=== PATIENT | male | born 1950 | race Caucasian/White ===

== ENCOUNTER 2017-12-01 07:39 | Observation (INO) ==
[2017-12-01] MEDS ORDERED: 0.9 % Sodium Chloride 1,000 ML IVC ONE (08:13)
[2017-12-01] MEDS ORDERED: *HR* FentaNYL (PF) 100 MCG/2 ML VIAL IVP ONE (08:13)
[2017-12-01] MEDS ORDERED: Ondansetron 4 MG/2 ML VIAL IVP ONE (08:14)
--- NOTE | 2017-12-01 08:32 | Emergency Department Note ---
Disposition Clinical Impression: Urinary retention, Mass of urinary bladder Hematuria Qualifiers: Hematuria type: gross Qualified Code(s): R31.0 - Gross hematuria Disposition: Admitted As Inpatient Condition: Good Referrals: Sara Mcneil CNP [Primary Care Provider] - Forms: ED Satisfaction Letter, Work/School Release Time of Disposition: 10:34 Abdominal Pain HPI - General Chief Complaint: ED Abdominal Pain Stated Complaint: "kidney stones sent by " Time Seen by Provider: 12/01/17 07:43 Source: patient, family Mode of arrival: ambulatory Limitations: no limitations Nursing Notes Reviewed: Yes Vital Signs Reviewed: Yes - History of Present Illness HPI Narrative: 67-year-old male history of non-insulin dependent diabetes mellitus presents emergency department for kidney stone and hematuria. States over the past 2 weeks he has been having suprapubic and flank discomfort with dysuria and hematuria. Yesterday he was seen at outside facility [facility] and was diagnosed with multiple kidney stones. He has been passing stones throughout the night but last few hours has been having significant pain discomfort and decrease urine output. Denies any nausea or vomiting. Denies any fevers. He is scheduled to see urologist Dr. Marsh tomorrow but due to the pain presented here for evaluation. No history of kidney stones before. He reports this was diagnosed on x-ray. His urinalysis reportedly was unremarkable for infection. No prior abdominal surgeries. Denies any penile discharge or tenderness. Pain Scale: 9 - Related Data Home Medications Medication Instructions Recorded Confirmed Citalopram Hydrobromide [Celexa] 40 mg PO DAILY 08/22/15 12/01/17 Cyanocobalamin (B-12) [Vitamin B12] 1,000 mcg PO DAILY 08/22/15 12/01/17 Furosemide [Lasix] 40 mg PO BID 08/22/15 12/01/17 [place]-3/Dha/Epa/Fish Oil [[place] 3 1 cap PO DAILY 08/22/15 12/01/17 500 Softgel] clonazePAM [Klonopin] 1 mg PO BID 08/22/15 12/01/17 Aspirin Enteric Coated [Aspirin EC] 81 mg PO DAILY 12/01/17 12/01/17 Ciprofloxacin HCl [Cipro] 500 mg PO BID 12/01/17 12/01/17 GlipiZIDE [Glipizide ER] 10 mg PO DAILY 12/01/17 12/01/17 Metformin HCl [Metformin HCl] 1,000 mg PO BID 12/01/17 12/01/17 Multivitamin [One Daily Essential] 1 tab PO DAILY 12/01/17 12/01/17 Previous Rx's Medication Instructions Recorded Atorvastatin [Lipitor] 80 mg PO HS #30 tablet 12/15/16 Allergies Allergy/AdvReac Type Severity Reaction Status Date / Time No Known Allergies Allergy Verified 12/01/17 10:20 All systems ED: reviewed and negative except as stated. Review of Systems: As Per HPI Constitutional: Denies: fever, chills Cardiovascular: Denies: chest pain Respiratory: Denies: dyspnea Gastrointestinal: Reports: abdominal pain. Denies: nausea, vomiting, diarrhea, melena, hematochezia Genitourinary: Reports: dysuria, frequency, hematuria. Denies: discharge, testicular pain Musculoskeletal: Denies: back pain Integumentary: Denies: rash, abrasion Abdominal Pain PMH - Past Medical History Medical history: Reports: coronary artery disease, DVT, diabetes, hyperlipidemia , hypertension, myocardial infarction, pulmonary embolus Male Surgical History: Reports: angioplasty/stent, other Psychiatric history: Reports: no psych history - Social History Smoking status: Current some day smoker Alcohol use: Reports: none Drug use: Reports: none Physical Exam - General Limitations: no limitations General appearance: alert, in no apparent distress - Head Head exam: atraumatic, normocephalic, normal inspection - Eye Eye exam: Present: normal appearance, PERRL, EOMI. Absent: scleral icterus - ENT ENT exam: normal exam, normal oropharynx, mucous membranes moist - Neck Neck exam: Present: normal inspection, full ROM, trachea midline - Chest Chest inspection: Present: normal inspection, symmetric chest wall rise - Respiratory Respiratory exam: Present: normal lung sounds bilaterally. Absent: respiratory distress, wheezes - Cardiovascular Cardiovascular exam: Present: regular rate, normal rhythm, normal heart sounds - Abdominal Exam Abdominal exam: Present: soft, Non-Tender. Absent: tenderness, distention, guarding, rebound, rigidity - Extremities Exam Extremities exam: Present: normal inspection, full ROM. Absent: tenderness, pedal edema - Back Exam Back exam: Present: normal inspection, full ROM. Absent: tenderness, CVA tenderness (R), CVA tenderness (L) - Neurological Exam Neurological exam: Present: alert, oriented X3 - Psychiatric Psychiatric exam: Present: normal affect, normal mood - Skin Skin exam: Present: warm, dry, intact, normal color. Absent: rash, cyanosis, diaphoresis Course Course Narrative: Patient presents with gross hematuria and dysuria. Prior to my evaluation he has urinated 3 times with some gross hematuria and what appears to be blood clots passing. He is complaining of worsening pain mostly in the suprapubic region. Was recently diagnosed with kidney stones. Denies history kidney disease. History of gnu-[id number]-[id number] diabetes mellitus. On my examination patient appears in mild distress. He just appears uncomfortable. No respiratory distress. Lungs are clear auscultation bilaterally. Abdomen is soft with suprapubic tenderness. No CVA tenderness. At this time will check some basic labs to evaluate for any renal insufficiency. Will obtain a urinalysis, IV fluid hydration, pain control and a CT of the abdomen and pelvis to evaluate for the stone. Patient is in agreement with this pain. - Reevaluation(s) Reevaluation #1: Patient reports passing multiple kidney stones and voiding nearly 500 cc. Patient appears more comfortable. Review of his labs does not show leukocytosis. His creatinine function 0.79. Urinalysis shows gross hematuria and is not consistent with infection. Awaiting final report of CT scan of the abdomen and pelvis, on review it does appear to show multiple stones and a mass like lesion in the bladder. Time: 09:26 - Consultations Consultation #1: Spoke with on-call urologist Dr. Lorne Marsh, suspect this is likely bladder cancer. He believes hematuria is likely due to a blood clot in the bladder that is currently being lysed with the urine. The discomfort earlier today was likely blood clot that finally past. He will likely require bladder irrigation. Patient has a history of blood clot on Coumadin but does not take for several years now. He takes a baby aspirin on a daily basis. It appears he has a chronic anemia around 10.5, hemoglobin today 9.7. Otherwise he has been attempting to lose weight and reports 30 pounds weight loss over the past 6 months. Denies any fever or night sweats. At this time patient recommended to be admitted to the hospital service. Currently it appears more comfortable, pain worse with voiding. Impression is urinary retention now resolved and hematuria Time: 10:08 Vital Signs Temperature 97.7 F 12/01/17 07:40 Pulse Rate 78 12/01/17 07:40 Respiratory Rate 16 12/01/17 07:40 Blood Pressure 129/70 12/01/17 07:40 O2 Sat by Pulse Oximetry 95 12/01/17 07:40 Temperature 97.7 F 12/01/17 08:02 Pulse Rate 67 12/01/17 09:32 Respiratory Rate 18 12/01/17 08:02 Blood Pressure 94/63 12/01/17 09:32 O2 Sat by Pulse Oximetry 97 12/01/17 09:32 Oxygen Delivery Oxygen Delivery Room Air Abdominal Pain - MDM Narrative Medical decision making narrative: Patient was discussed with my attending physician who agrees with ED management and final disposition. They independently evaluated the patient. Please refer to their attestation to this encounter for additional information. This note was generated by [employer] voice recognition software and as a result grammatical or spelling errors may occur using this program. - Medical Records Medical records reviewed: Yes I reviewed the patient's medical records. - Lab Data Lab results reviewed: Yes I reviewed the patient's lab results. Result diagrams: 12/01/17 08:28 12/01/17 08:28 Lab Results 12/01/17 12/01/17 12/01/17 Range/Units 08:20 08:28 08:28 WBC 4.0 L (4.3-11.1) K/mcL RBC 3.46 L (4.19-5.50) M/mcL Hgb 9.7 L (12.9-16.9) g/dL Hct 30.2 L (37.5-50.1) % MCV 87.3 (83.0-100.0) fL MCH 28.0 (28.0-33.3) pg MCHC 32.1 (31.6-35.5) g/dL RDW 14.6 H (11.5-14.5) % Plt Count 184 (140-400) K/mcL MPV 9.4 (9.4-12.4) fL Immature Gran % 0.3 (0-4) % Seg Neutrophils % 56.4 % Lymphocytes % 30.2 % Monocytes % 10.6 % Eosinophils % 1.5 % Basophils % 1.0 % Neutrophils # 2.3 (1.6-8.9) K/mcL Lymphocytes # 1.2 (0.6-4.6) K/mcL Monocytes # 0.4 (0.0-1.3) K/mcL Eosinophils # 0.1 (0.0-0.6) K/mcL Basophils # 0.0 (0.0-0.2) K/mcL Sodium 139 (136-145) mEq/L Potassium 3.8 (3.5-5.1) mEq/L Chloride 106 (98-107) mEq/L Carbon Dioxide 23 (23-29) mEq/L BUN 11 (8-23) mg/dL Creatinine 0.79 (0.70-1.30) mg/dL Est GFR ( Amer) > 60 (> 60) Est GFR (Non-Af Amer) > 60 (> 60) BUN/Creatinine Ratio 14 (6-26) Glucose 185 H (70-105) mg/dL Calculated Osmolality 292 (280-300) Calcium 9.1 (8.6-10.3) mg/dL Ur Specimen Adequacy See below A Urine Color Red A (Yellow) Urine Clarity Cloudy A (Clear) Urine pH 6.5 (5.0-8.0) pH Units Ur Specific [place] 1.011 (1.010-1.025) Urine Protein >=1000 H (Neg-Trace) mg/dL Urine Glucose (UA) Normal (Normal) mg/dL Urine Ketones Negative (Negative) mg/dL Urine Blood Large H (Negative) Urine Nitrite Negative (Negative) Urine Bilirubin Negative (Negative) Urine Urobilinogen Normal (Normal) mg/dL Ur Leukocyte Esterase Negative (Negative) Ur Culture Indicated? NO (NO) - Radiology Data Radiology results reviewed: Yes I reviewed the patient's radiology results. Abdomen/Pelvis CT 12/01/17 08:20 IMPRESSION: 1. 1.4 x 1.1 cm soft tissue lesion along the left lateral bladder wall suspicious for neoplasm. Recommend further evaluation with urologic consult and cystoscopy. 2. Triangular-shaped 3.0 x 3.0 cm area of more hyperdense material layering within the dependent aspect of the bladder, favoring blood products given its density. An irregular mass is not otherwise excluded on this unenhanced study. 3. Nonobstructing left renal calculus. D/ / 12/01/2017 09:34:56 Betsy Neely MD / yolanda Interpreting Provider: Betsy Neely MD Attestation Statement - Attestation Attestation: I, Venkatesh Gill DO, examined this patient [id number] and my medical decision-making was reviewed with Rodolfo Goss DO , Resident Physician. I agree with the documented findings, disposition and treatment plan as described except to the extent set forth below. Please see my progress notes for details. 67-year-old male presents emergency room with complaint of bilateral flank pain and gross hematuria. Patient was seen in outside facility yesterday and had x- ray. He was found to have renal stones. He was given pain medication recommendation for follow-up with a primary care provider. Patient is a persistent pain and symptoms here today the have not gotten any better. Patient came back in the emergency room for evaluation. This morning had decreased urinary output and some small clots and then had gross hematuria here in the department. Currently is denying chest pain shortness of breath headache vision changes nausea vomiting or diarrhea. Denies any fevers or chills. Patient has a coronary disease history of embolic takes an aspirin at home. He is otherwise not on any other blood thinners. Because the presentation as well as the persistence of progression of the pain along with a hematuria patient was CT imaging of the abdomen along with CBC chemistry type and screen urinalysis completed here today. Disposition will be determined once full workup and treatment course are evaluated. On physical exam the patient is resting comfortable in the bed this time after pain medication fluids have not started. Lungs are clear heart is regular abdomen is soft nontender nondistended no guarding no rigidity no peritoneal symptoms. Blood in the urine was evaluated and shows some small clots along with gross hematuria. We will continue to monitor his symptoms are controlled completed and imaging is resulted. See detailed documentation of the physical exam, medical intervention, medical decision-making and disposition in the resident physician's note. [id number] Patient was discussed with the on-call urologist Dr. Marsh as well as the hospitalist Dr. beard. No other recommendations this time except for admission for further evaluation and definitive management. Patient will be symptomatically controlled. Admission process will be established. Patient otherwise clinical stable.
[2017-12-01 08:43] LABS: Bilirubin,Urine Negative (Negative); Blood,Urine Large (Negative); Glucose,Urine (UA) Normal (Normal); Ketones,Urine Negative (Negative); Leukocyte Esterase,Urine Negative (Negative); Nitrite,Urine Negative (Negative); PH,Urine 6.5 pH Units (5.0-8.0); Protein,Urine >=1000 mg/dL (Neg-Trace); Specific Gravity,Urine 1.011 (1.010-1.025); Urobilinogen,Urine Normal (Normal)
[2017-12-01 08:44] LABS: Eosinophils # 0.1 K/mcL (0.0-0.6); Eosinophils % 1.5 %; Hematocrit 30.2 % (37.5-50.1); Hemoglobin 9.7 g/dL (12.9-16.9); Immature Granulocytes % 0.3 % (0-4); Lymphocytes # 1.2 K/mcL (0.6-4.6); Lymphocytes % 30.2 %; Mean Corpuscular HGB Conc 32.1 g/dL (31.6-35.5); Mean Corpuscular Volume 87.3 fL (83.0-100.0); Mean Platelet Volume 9.4 fL (9.4-12.4); Monocytes # 0.4 K/mcL (0.0-1.3); Monocytes % 10.6 %; Neutrophils # 2.3 K/mcL (1.6-8.9); Platelet Count 184 K/mcL (140-400); Red Blood Count 3.46 M/mcL (4.19-5.50); Red Cell Distribution Width 14.6 % (11.5-14.5); Segmented Neutrophils % 56.4 %
[2017-12-01 08:50] LABS: Clarity,Urine Cloudy (Clear); Color,Urine Red (Yellow)
[2017-12-01 09:07] LABS: BUN/Creatinine Ratio 14 (6-26); Blood Urea Nitrogen 11 mg/dL (8-23); Calcium 9.1 mg/dL (8.6-10.3); Carbon Dioxide 23 mEq/L (23-29); Chloride 106 mEq/L (98-107); Glucose 185 mg/dL (70-105); Osmolality,Calculated 292 (280-300); Potassium 3.8 mEq/L (3.5-5.1); Sodium 139 mEq/L (136-145); eGFR For African Americans > 60 (> 60); eGFR For Non-African Americans > 60 (> 60)
[2017-12-01] MEDS ORDERED: Naloxone 0.4 MG/ML INJ IVP PRN (10:53)
[2017-12-01] MEDS ORDERED: Acetaminophen 325 MG TABLET PO PRN (10:53)
[2017-12-01] MEDS ORDERED: *HR* HYDROcodone/Acet 5/325 mg TABLET PO PRN (10:53)
[2017-12-01] MEDS ORDERED: *HR* OxyCODONE Immed Rel 5 MG TABLET PO PRN (10:53)
--- NOTE | 2017-12-01 10:53 | Internal Med History&Physical ---
Date of Encounter: 12/01/17 Time of Encounter: 13:01 Internal Medicine - H&P: HPI Chief complaint: Hematuria Admitted From: Home Plans for Post Hospital Care: Home History of present illness: Mr. Llamas is a 67 year old male who presented to the emergency room with complaints of passing [place] bloody urine. Blood clots of the past 2 weeks. The patient reports he was in his usual state of health until 2 weeks ago when he developed bloody urine, now associated with blood clots in the past 2 days. This morning, when he woke up, he had severe pain with abdominal distention, as well as difficulty passing urine. He decided to present to the ER. He denies fever or chills, he denies bleeding from any other orifices. He denies nausea, vomiting, diarrhea. He denies chest pain or shortness of breath. He has no leg edema. He has no neurologic symptoms. He has a history of coronary artery disease and takes aspirin at home however, he reports not taking aspirin for the past 5 days since symptoms begun. He reports he presented to an outside facility, where he had a CAT scan done that showed multiple kidney stones. However, CAT scan done here shows a bladder mass with blood clots in the bladder. Urology was consulted and recommended admitting to med seen due to acute on chronic anemia, history of diabetes and coronary artery disease. On evaluation, the patient is hemodynamically stable and is in mild painful distress. He will be placed on observation pending urology evaluation. He denies illicit drug use, he smokes no family history of cancer he is full code. Past Med Surg Social Fam HX - Past Medical History Medical history: coronary artery disease, DVT, diabetes, hyperlipidemia, hypertension, myocardial infarction, pulmonary embolus Additional medical history: right wrist cyst removed-cancerous Psychiatric history: no psych history - Past Surgical History Surgical History: angioplasty/stent Additional surgical history: coronary stent - Social History Smoking Status: Current some day smoker Smokeless Tobacco Status: No Alcohol use: none Drug use: none - Family History Mother Living Status: Hx Family Cardiac Disorders: Yes Father Living Status: Hx Family Cardiac Disorders: Yes Internal Medicine - H&P: Meds Citalopram Hydrobromide [Celexa] 40 mg PO DAILY 08/22/15 [History] Cyanocobalamin (B-12) [Vitamin B12] 1,000 mcg PO DAILY 08/22/15 [History] Furosemide [Lasix] 40 mg PO BID 08/22/15 [History] [place]-3/Dha/Epa/Fish Oil [[place] 3 500 Softgel] 1 cap PO DAILY 08/22/15 [History] clonazePAM [Klonopin] 1 mg PO BID 08/22/15 [History] Atorvastatin [Lipitor] 80 mg PO HS #30 tablet 12/15/16 [Rx] Aspirin Enteric Coated [Aspirin EC] 81 mg PO DAILY 12/01/17 [History] Ciprofloxacin HCl [Cipro] 500 mg PO BID 12/01/17 [History] GlipiZIDE [Glipizide ER] 10 mg PO DAILY 12/01/17 [History] Metformin HCl [Metformin HCl] 1,000 mg PO BID 12/01/17 [History] Multivitamin [One Daily Essential] 1 tab PO DAILY 12/01/17 [History] 3 Allergy/AdvReac Type Severity Reaction Status Date / Time No Known Allergies Allergy Verified 12/01/17 10:20 All Systems PM: A 10-system review of systems was performed and is negative for pertinent findings except as documented above in the HPI. - Constitutional Constitutional: no chills, no fever(s), no night sweats - EENT Eyes: no change in vision, no discharge, no pain, no photophobia Ears: no ear discharge, no ear pain, no tinnitus Nose, mouth and throat: no dysphagia, no nasal discharge, no neck pain, no sore throat - Cardiovascular Cardiovascular ROS IM: no chest pain, no diaphoresis, no dyspnea, no lightheadedness, no palpitations, no syncope - Respiratory Respiratory: no cough, no dyspnea, no wheezing, no excessive phlegm production - Gastrointestinal Gastrointestinal: no abdominal pain, no diarrhea, no hematemesis, no hematochezia, no melena, no nausea, no vomiting - Genitourinary Genitourinary ROS male: as per HPI - Musculoskeletal Musculoskeletal ROS IM: no numbness, no tingling - Integumentary Integumentary IM: no rash, no unusual bruising - Neurological Neurological ROS: no confusion, no convulsions, no focal weakness, no numbness, no tingling, no tremor(s) - Hematologic/Lymphatic Hematologic/Lymphatic: no easy bruising - Constitutional Vitals: Temp Pulse Resp BP Pulse Ox 97.7 F 67 18 94/63 97 12/01/17 08:02 12/01/17 09:32 12/01/17 08:02 12/01/17 09:32 12/01/17 09:32 General appearance: Present: A&O X 3, pleasant, no acute distress - Head Head exam: Present: atraumatic, normocephalic - Eye Eye exam: Present: PERRL, conjuntiva pink, sclera anicteric Pupils: Present: PERRL - Neck Neck exam general surgery: Present: supple, trachea midline. Absent: lymphadenopathy - Respiratory Respiratory exam: Present: CTAB. Absent: accessory muscle use, rales, rhonchi, wheezes - Cardiovascular Cardiovascular exam: Present: RRR, +S1, +S2. Absent: diastolic murmur, gallop, rubs, systolic murmur - GI/Abdominal GI/Abdominal exam: Present: normal bowel sounds, soft, no peritoneal signs. Absent: distended, tenderness - Extremities Exam Extremities exam: Present: warm, radial pulses palpable and symmetrical. Absent : calf tenderness, cyanotic, pedal edema - Neurological Exam Neurological exam: Present: CN II-XII intact, oriented X3, no focal deficits. Absent: pronater drift, facial droop, speech deficit - Skin Skin exam: Present: dry, intact Internal Med - H&P Results - Labs CBC & Chem 7: 12/01/17 08:28 12/01/17 08:28 Labs: Short CBC 12/01/17 Range/Units 08:28 WBC 4.0 L (4.3-11.1) K/mcL Hgb 9.7 L (12.9-16.9) g/dL Hct 30.2 L (37.5-50.1) % Plt Count 184 (140-400) K/mcL Neutrophils # 2.3 (1.6-8.9) K/mcL BMP 12/01/17 08:28 Sodium 139 Potassium 3.8 Chloride 106 Carbon Dioxide 23 BUN 11 Creatinine 0.79 Glucose 185 H Calcium 9.1 Urine 12/01/17 Range/Units 08:20 Urine Color Red A (Yellow) Urine Clarity Cloudy A (Clear) Urine pH 6.5 (5.0-8.0) pH Units Ur Specific [place] 1.011 (1.010-1.025) Urine Protein >=1000 H (Neg-Trace) mg/dL Urine Glucose (UA) Normal (Normal) mg/dL - Impressions ITS Impressions Abdomen/Pelvis CT 12/01/17 08:20 IMPRESSION: 1. 1.4 x 1.1 cm soft tissue lesion along the left lateral bladder wall suspicious for neoplasm. Recommend further evaluation with urologic consult and cystoscopy. 2. Triangular-shaped 3.0 x 3.0 cm area of more hyperdense material layering within the dependent aspect of the bladder, favoring blood products given its density. An irregular mass is not otherwise excluded on this unenhanced study. 3. Nonobstructing left renal calculus. D/ / 12/01/2017 09:34:56 Betsy Neely MD / yolanda Interpreting Provider: Betsy Neely MD - Assessment and plan (1) Hematuria Current Visit: Yes Status: Acute Assessment and plan: Patient with gross hematuria associated with passage of blood clots and possible urinary retention. CAT scan here shows lateral bladder wall lesion suspicious for neoplasm associated with blood clots in the bladder. IV fluid hydration. Urology consulted for bladder irrigation, cystoscopy and possible biopsy Monitor hemoglobin. Qualifiers: Hematuria type: gross Qualified Code(s): R31.0 - Gross hematuria (2) Mass of urinary bladder Current Visit: Yes Status: Acute Assessment and plan: As above (3) Anemia Current Visit: Yes Status: Acute Assessment and plan: Patient has a history of chronic anemia, baseline hemoglobin 10-11. Presented with hemoglobin of 9 associated with gross hematuria. Hold aspirin Type and screen Transfuse for hemodynamic instability, or hemoglobin less than 7. Qualifiers: Anemia type: unspecified type Qualified Code(s): D64.9 - Anemia, unspecified (4) DVT prophylaxis Current Visit: Yes Status: Acute Assessment and plan: SCDs due to active hematuria. (5) Hyperlipidemia Current Visit: Yes Status: Chronic Assessment and plan: Continue home medications. Qualifiers: Hyperlipidemia type: unspecified Qualified Code(s): E78.5 - Hyperlipidemia , unspecified (6) Hypertension Current Visit: Yes Status: Chronic Assessment and plan: Continue home medications. Qualifiers: Hypertension type: essential hypertension Qualified Code(s): I10 - Essential (primary) hypertension (7) Tobacco abuse Current Visit: Yes Status: Acute Assessment and plan: Encouraged cessation. Nicotine replacement therapy when necessary. (8) CAD (coronary artery disease) Current Visit: Yes Status: Chronic Assessment and plan: Hold aspirin Continue home doses of Lipitor, continue Lasix. Qualifiers: Coronary Disease-Associated Artery/Lesion type: [place] artery [place] vs. transplanted heart: [place] heart Associated angina: without angina Qualified Code(s): I25.10 - Atherosclerotic heart disease of [place] coronary artery without angina pectoris (9) Type 2 diabetes mellitus Current Visit: Yes Status: Chronic Assessment and plan: Fingersticks before meals at bedtime Diabetic diet Sliding-scale insulin Hold metformin and glipizide. Qualifiers: Diabetes mellitus youth officer insulin use: without youth officer use Diabetes mellitus complication status: without complication Qualified Code(s): E11.9 - Type 2 diabetes mellitus without complications - Time Spent With Patient Total time spent is greater than 50% in coordination of care (as documented) at patient's floor/unit and/or counseling patient:
[2017-12-01] MEDS ORDERED: Ondansetron 4 MG/2 ML VIAL IVP PRN (10:54)
[2017-12-01] MEDS ORDERED: D5% in Water 1,000 ML IVC PRN (10:55)
[2017-12-01] MEDS ORDERED: Dextrose Gel 15 GM/37.5 ML TUBE PO PRN ×2 (10:55)
[2017-12-01] MEDS ORDERED: *HR* Dextrose 50 % in Water (Syg) 50 ML SYRINGE IVP PRN (10:55)
--- NOTE | 2017-12-01 10:58 | Emergency Department Note ---
Disposition Clinical Impression: Urinary retention, Mass of urinary bladder Hematuria Qualifiers: Hematuria type: gross Qualified Code(s): R31.0 - Gross hematuria Disposition: Admitted As Inpatient Condition: Good Referrals: Sara Mcneil CNP [Primary Care Provider] - Forms: ED Satisfaction Letter, Work/School Release General Adult HPI - General Chief complaint: ED Abdominal Pain Stated complaint: "kidney stones sent by " Time Seen by Provider: 12/01/17 07:43 Source: patient, family Mode of arrival: ambulatory Limitations: no limitations - History of Present Illness Pain Scale: 9 - Related Data Home Medications Medication Instructions Recorded Confirmed Citalopram Hydrobromide [Celexa] 40 mg PO DAILY 08/22/15 12/01/17 Cyanocobalamin (B-12) [Vitamin B12] 1,000 mcg PO DAILY 08/22/15 12/01/17 Furosemide [Lasix] 40 mg PO BID 08/22/15 12/01/17 [place]-3/Dha/Epa/Fish Oil [[place] 3 1 cap PO DAILY 08/22/15 12/01/17 500 Softgel] clonazePAM [Klonopin] 1 mg PO BID 08/22/15 12/01/17 Aspirin Enteric Coated [Aspirin EC] 81 mg PO DAILY 12/01/17 12/01/17 Ciprofloxacin HCl [Cipro] 500 mg PO BID 12/01/17 12/01/17 GlipiZIDE [Glipizide ER] 10 mg PO DAILY 12/01/17 12/01/17 Metformin HCl [Metformin HCl] 1,000 mg PO BID 12/01/17 12/01/17 Multivitamin [One Daily Essential] 1 tab PO DAILY 12/01/17 12/01/17 Previous Rx's Medication Instructions Recorded Atorvastatin [Lipitor] 80 mg PO HS #30 tablet 12/15/16 Allergies Allergy/AdvReac Type Severity Reaction Status Date / Time No Known Allergies Allergy Verified 12/01/17 10:20 Constitutional: Denies: fever, chills Cardiovascular: Denies: chest pain Respiratory: Denies: dyspnea Gastrointestinal: Reports: abdominal pain. Denies: nausea, vomiting, diarrhea, melena, hematochezia Genitourinary: Reports: dysuria, frequency, hematuria. Denies: discharge, testicular pain Musculoskeletal: Denies: back pain Integumentary: Denies: rash, abrasion Past Medical History - Past Medical History Medical history: Reports: coronary artery disease, DVT, diabetes, hyperlipidemia , hypertension, myocardial infarction, pulmonary embolus Surgical history: Reports: angioplasty/stent Psychiatric history: Reports: no psych history - Social History Smoking Status: Current some day smoker Smokeless Tobacco Status: No Alcohol use: Reports: none Drug use: Reports: none Physical Exam - General Limitations: no limitations General appearance: alert, in no apparent distress Course Vital Signs Temperature 97.7 F 12/01/17 07:40 Pulse Rate 78 12/01/17 07:40 Respiratory Rate 16 12/01/17 07:40 Blood Pressure 129/70 12/01/17 07:40 O2 Sat by Pulse Oximetry 95 12/01/17 07:40 Temperature 97.7 F 12/01/17 08:02 Pulse Rate 68 12/01/17 10:54 Respiratory Rate 18 12/01/17 08:02 Blood Pressure 112/56 12/01/17 10:54 O2 Sat by Pulse Oximetry 96 12/01/17 10:54 Oxygen Delivery Oxygen Delivery Room Air Medical Decision Making - Lab Data Result diagrams: 12/01/17 08:28 12/01/17 08:28 Lab Results 12/01/17 12/01/17 12/01/17 Range/Units 08:20 08:28 08:28 WBC 4.0 L (4.3-11.1) K/mcL RBC 3.46 L (4.19-5.50) M/mcL Hgb 9.7 L (12.9-16.9) g/dL Hct 30.2 L (37.5-50.1) % MCV 87.3 (83.0-100.0) fL MCH 28.0 (28.0-33.3) pg MCHC 32.1 (31.6-35.5) g/dL RDW 14.6 H (11.5-14.5) % Plt Count 184 (140-400) K/mcL MPV 9.4 (9.4-12.4) fL Immature Gran % 0.3 (0-4) % Seg Neutrophils % 56.4 % Lymphocytes % 30.2 % Monocytes % 10.6 % Eosinophils % 1.5 % Basophils % 1.0 % Neutrophils # 2.3 (1.6-8.9) K/mcL Lymphocytes # 1.2 (0.6-4.6) K/mcL Monocytes # 0.4 (0.0-1.3) K/mcL Eosinophils # 0.1 (0.0-0.6) K/mcL Basophils # 0.0 (0.0-0.2) K/mcL Sodium 139 (136-145) mEq/L Potassium 3.8 (3.5-5.1) mEq/L Chloride 106 (98-107) mEq/L Carbon Dioxide 23 (23-29) mEq/L BUN 11 (8-23) mg/dL Creatinine 0.79 (0.70-1.30) mg/dL Est GFR ( Amer) > 60 (> 60) Est GFR (Non-Af Amer) > 60 (> 60) BUN/Creatinine Ratio 14 (6-26) Glucose 185 H (70-105) mg/dL Calculated Osmolality 292 (280-300) Calcium 9.1 (8.6-10.3) mg/dL Ur Specimen Adequacy See below A Urine Color Red A (Yellow) Urine Clarity Cloudy A (Clear) Urine pH 6.5 (5.0-8.0) pH Units Ur Specific [place] 1.011 (1.010-1.025) Urine Protein >=1000 H (Neg-Trace) mg/dL Urine Glucose (UA) Normal (Normal) mg/dL Urine Ketones Negative (Negative) mg/dL Urine Blood Large H (Negative) Urine Nitrite Negative (Negative) Urine Bilirubin Negative (Negative) Urine Urobilinogen Normal (Normal) mg/dL Ur Leukocyte Esterase Negative (Negative) Ur Culture Indicated? NO (NO) Attestation Statement - Attestation Attestation: I, Venkatesh Gill DO, examined this patient [id number] and my medical decision-making was reviewed with Rodolfo Goss DO , Resident Physician. I agree with the documented findings, disposition and treatment plan as described except to the extent set forth below. Please see my progress notes for details. 67-year-old male presents emergency room with complaint of bilateral flank pain and gross hematuria. Patient was seen in outside facility yesterday and had x- ray. He was found to have renal stones. He was given pain medication recommendation for follow-up with a primary care provider. Patient is a persistent pain and symptoms here today the have not gotten any better. Patient came back in the emergency room for evaluation. This morning had decreased urinary output and some small clots and then had gross hematuria here in the department. Currently is denying chest pain shortness of breath headache vision changes nausea vomiting or diarrhea. Denies any fevers or chills. Patient has a coronary disease history of embolic takes an aspirin at home. He is otherwise not on any other blood thinners. Because the presentation as well as the persistence of progression of the pain along with a hematuria patient was CT imaging of the abdomen along with CBC chemistry type and screen urinalysis completed here today. Disposition will be determined once full workup and treatment course are evaluated. On physical exam the patient is resting comfortable in the bed this time after pain medication fluids have not started. Lungs are clear heart is regular abdomen is soft nontender nondistended no guarding no rigidity no peritoneal symptoms. Blood in the urine was evaluated and shows some small clots along with gross hematuria. We will continue to monitor his symptoms are controlled completed and imaging is resulted. See detailed documentation of the physical exam, medical intervention, medical decision-making and disposition in the resident physician's note. [id number] Patient was discussed with the on-call urologist Dr. Marsh as well as the hospitalist Dr. beard. No other recommendations this time except for admission for further evaluation and definitive management. Patient will be symptomatically controlled. Admission process will be established. Patient otherwise clinical stable.
[2017-12-01] MEDS: Insulin LISPRO 300 UNITS/3 ML VIAL SQ SCH ×2 (12:55→17:30)
[2017-12-01] MEDS: 0.9 % Sodium Chloride 1,000 ML IVC SCH (13:44)
--- NOTE | 2017-12-01 14:30 | Urology - Consult Note ---
Date of Encounter: 12/01/17 Time of Encounter: 14:27 - Assessment and Plan (1) Mass of urinary bladder Current Visit: Yes Status: Acute Assessment and plan: Patient is a 67 year old male who was diagnosed with a bladder tumor by CT scan. I reviewed these results with the patient and discussed TURBT procedure. Patient verbalized understanding, agrees and is awaiting Dr. Marsh to sign consent. (2) Hematuria Current Visit: Yes Status: Acute Assessment and plan: Hematuria is likely due to bladder tumor. Patient is in the process to be consented for TURBT procedure to resect bladder tumor. Qualifiers: Hematuria type: gross Qualified Code(s): R31.0 - Gross hematuria (3) Urinary retention Current Visit: Yes Status: Acute Assessment and plan: Patient initially presented to ED with complaints of urinary retention. Patient states he is currently able to void at bedside urinal. I discussed the concern for clot retention and probable need for catheter placement. I will discuss catheter placement with Dr. Marsh. Urology CN:HPI Reason for consult Urology: Other (Bladder tumor; left renal stone; urinary retention) History of present illness: The patient is a 67-year-old male who presents to the emergency department with abdominal pain, bilateral flank pain, and gross hematuria. Patient does not have any known history of kidney stones but has a very strong family history of kidney stones through his mother and sisters. The patient denies current smoking history but states he smoked cigarettes for 15 years. The patient initially presented with urinary retention but states his output is normal and sufficient after passing multiple blood clots and what he believes to be stone fragments. Past Med Surg Social Fam HX - Past Medical History Medical history: coronary artery disease, DVT, diabetes, hyperlipidemia, hypertension, myocardial infarction, pulmonary embolus Additional medical history: right wrist cyst removed-cancerous Psychiatric history: no psych history - Past Surgical History Surgical History: angioplasty/stent Additional surgical history: coronary stent - Social History Smoking Status: Current some day smoker Smokeless Tobacco Status: No Alcohol use: none Drug use: none - Family History Mother Living Status: Hx Family Cardiac Disorders: Yes Father Living Status: Hx Family Cardiac Disorders: Yes Medications and Allergies Citalopram Hydrobromide [Celexa] 40 mg PO DAILY 08/22/15 [History] Cyanocobalamin (B-12) [Vitamin B12] 1,000 mcg PO DAILY 08/22/15 [History] Furosemide [Lasix] 40 mg PO BID 08/22/15 [History] [place]-3/Dha/Epa/Fish Oil [[place] 3 500 Softgel] 1 cap PO DAILY 08/22/15 [History] clonazePAM [Klonopin] 1 mg PO BID 08/22/15 [History] Atorvastatin [Lipitor] 80 mg PO HS #30 tablet 12/15/16 [Rx] Aspirin Enteric Coated [Aspirin EC] 81 mg PO DAILY 12/01/17 [History] Ciprofloxacin HCl [Cipro] 500 mg PO BID 12/01/17 [History] GlipiZIDE [Glipizide ER] 10 mg PO DAILY 12/01/17 [History] Metformin HCl [Metformin HCl] 1,000 mg PO BID 12/01/17 [History] Multivitamin [One Daily Essential] 1 tab PO DAILY 12/01/17 [History] 3 Allergy/AdvReac Type Severity Reaction Status Date / Time No Known Allergies Allergy Verified 12/01/17 10:20 Review of Systems - Constitutional as per HPI, no chills, no fatigue, no fever(s) - Cardiovascular no chest pain, no dyspnea - Respiratory no cough, no dyspnea - Gastrointestinal abdominal pain, nausea, no vomiting - Genitourinary difficulty urinating, flank pain, hematuria, urinary urgency, no dysuria, no urinary frequency, no urinary hesitancy, no urinary incontinence - Musculoskeletal back pain - Integumentary no erythema, no rash - Neurological no confusion, no weakness Exam Initial Vital Signs Temp Pulse Resp BP Pulse Ox 97.7 F 78 16 129/70 95 12/01/17 07:40 12/01/17 07:40 12/01/17 07:40 12/01/17 07:40 12/01/17 07:40 - General physical appearance Present: well developed, well nourished, no distress - Eyes Present: normal ocular movement - ENT Present: normal nares. Absent: nasal discharge - Neck Present: no masses, trachea midline - Respiratory Present: normal respiratory effort - Cardiovascular Cardiovascular exam IM: RRR - Abdomen Abdomen: Present: soft, non tender. Absent: distended - Integumentary Present: no rash, no abnormal pigmentation - Neurologic Present: normal coordination Urology Results - Labs 12/01/17 08:28 12/01/17 08:28 Abnormal lab results WBC 4.0 K/mcL (4.3-11.1) L 12/01/17 08:28 RBC 3.46 M/mcL (4.19-5.50) L 12/01/17 08:28 Hgb 9.7 g/dL (12.9-16.9) L 12/01/17 08:28 Hct 30.2 % (37.5-50.1) L 12/01/17 08:28 RDW 14.6 % (11.5-14.5) H 12/01/17 08:28 Glucose 185 mg/dL (70-105) H 12/01/17 08:28 Ur Specimen Adequacy See below A 12/01/17 08:20 Urine Color Red (Yellow) A 12/01/17 08:20 Urine Clarity Cloudy (Clear) A 12/01/17 08:20 Urine Protein >=1000 mg/dL (Neg-Trace) H 12/01/17 08:20 Urine Blood Large (Negative) H 12/01/17 08:20 All other labs normal. - Imaging CT scan - abdomen: report reviewed, image reviewed CT scan - pelvis: report reviewed, image reviewed Consult Discharge Plan - Plan Referrals: Sara Mcneil, JD [Primary Care Provider] -
[2017-12-01] MEDS ORDERED: Furosemide 40 MG TABLET PO SCH (17:00)
--- NOTE | 2017-12-01 20:24 | Anesthesia Evaluation PreOp ---
Date of Encounter: 12/01/17 Time of Encounter: 20:22 - Past History Planned Operation: TURBT Cardiac History: HTN, Hyperlipidemia, Cardiac Stent (one stent years ago) Pulmonary History: Former smoker (quit 25 years ago) NUCLEAR SECURITY OFFICER History: Denies Any Significant HX Other Medical History: Diabetes Type II (oral medications only) Anesthesia History: No Prior Anesthetic Complications Alcohol Use: none Drug use: none Medications and Allergies Citalopram Hydrobromide [Celexa] 40 mg PO DAILY 08/22/15 [History] Cyanocobalamin (B-12) [Vitamin B12] 1,000 mcg PO DAILY 08/22/15 [History] Furosemide [Lasix] 40 mg PO BID 08/22/15 [History] [place]-3/Dha/Epa/Fish Oil [[place] 3 500 Softgel] 1 cap PO DAILY 08/22/15 [History] clonazePAM [Klonopin] 1 mg PO BID 08/22/15 [History] Atorvastatin [Lipitor] 80 mg PO HS #30 tablet 12/15/16 [Rx] Aspirin Enteric Coated [Aspirin EC] 81 mg PO DAILY 12/01/17 [History] Ciprofloxacin HCl [Cipro] 500 mg PO BID 12/01/17 [History] GlipiZIDE [Glipizide ER] 10 mg PO DAILY 12/01/17 [History] Metformin HCl [Metformin HCl] 1,000 mg PO BID 12/01/17 [History] Multivitamin [One Daily Essential] 1 tab PO DAILY 12/01/17 [History] 3 Allergy/AdvReac Type Severity Reaction Status Date / Time No Known Allergies Allergy Verified 12/01/17 10:20 - Meds/Allergy Pre-op Review Medications Reviewed: Yes Allergies Reviewed: Yes Beta Blockers on Current Med List: No Anesthesia Results - Labs 12/01/17 08:28 12/01/17 08:28 - Imaging EKG: report reviewed, image reviewed (SINUS RHYTHM MARKED LEFT AXIS DEVIATION [ QRS AXIS < -30] PATTERN CONSISTENT WITH PULMONARY DISEASE INCOMPLETE RIGHT BUNDLE BRANCH BLOCK [90+ ms QRS DURATION, TERMINAL R IN V1/V2, 40+ ms S IN I/ aVL/V4/V5/V6] VOLTAGE CRITERIA FOR LVH [MEETS CRITERIA IN ONE OF: R(aVL), S(V1) , R(V5), R(V5/V6) +S(V1)] POOR R WAVE PROGRESSION) Anesthesia Exam Last Vital Signs Temp 98.6 F 12/01/17 16:07 Pulse 72 12/01/17 16:07 Resp 18 12/01/17 16:07 BP 117/64 12/01/17 16:07 Pulse Ox 96 12/01/17 16:07 Weight: 86 kg - HEENT Pupil (Motor): Pupils equal, EOMI Mallampati: III Teeth: Poor dentition Oral Opening: Greater than 3 - NUCLEAR SECURITY OFFICER LOC: Oriented - Cardiac Rhythm: Regular Murmur: None - Pulmonary Breath Sounds: bilateral Clear Respiratory Effort: Symmetrical Anesthesia Assess/Plan ASA Score: 3 Modified Julianne Scale for Level of Consciousness: Cooperative, oriented, and tranquil Anesthetic Plan: General Monitoring Plan: Standard Monitors Recovery Plan: PACU
--- NOTE | 2017-12-01 20:28 | Operative Note ---
Date of procedure: 12/01/17 Pre-op diagnosis: bladder tumor Post-op diagnosis: same Procedure: TURBT medium ~3 cm Anesthesia: GETA Surgeon: Lorne Marsh Was there an safety admin assistant present: No Estimated blood loss (cc): 5 Specimen: bladder tumor Condition: stable Disposition: PACU Procedure in Detail: PROCEDURE IN DETAIL: Patient was taken back to the operating room, positioned supine on the operating table. Anesthesia was applied without complication. They were moved into dorsal lithotomy. Careful attention was maintained to cushion pressure points for patient's safety. The patient was prepped and draped in sterile fashion. Time-out was performed to confirm the proper patient and procedure. The urethral meatus was dilated with sounds up to 26- [place]. I placed the resectoscope with visual obturator. The tumor was located on the left lateral bladder wall. There is also a large blood clot in the dependent portion of bladder. Once the resectoscope was in position, a Tunde syringe was used to irrigate the clot. This provided better visualization. A 22-[place] loop with a coagulation/cut settings of 80/80 was then used to resect the tumor in its entirety. There was no obturator reflex during the procedure. Muscle appeared to be visualized in the resection site and there was no evidence of perforation. The tumor was a larger exophytic tumor with a narrower base. Hemostasis was controlled with the loop and minimal bleeding was observed after the procedure. All tumor chips were removed from the bladder through the resectoscope and sent for permanent specimen. I emptied and filled the bladder a few times to confirm hemostasis. They were brought out of anesthesia in stable condition. An 18-[place] catheter was placed after the procedure.
[2017-12-01] MEDS ORDERED: *HR* FentaNYL (PF) 100 MCG/2 ML VIAL ONE (20:29)
[2017-12-01] MEDS ORDERED: *HR* Propofol 200 MG/20 ML VIAL IVP ONE (20:29)
[2017-12-01] MEDS ORDERED: *HR* Midazolam HCl 2 MG/2 ML VIAL ONE (20:29)
[2017-12-01] MEDS ORDERED: Dexamethasone 4 MG/ML VIAL ONE (20:42)
[2017-12-01] MEDS ORDERED: Ondansetron 4 MG/2 ML VIAL ONE (20:42)
[2017-12-01] MEDS ORDERED: Insulin LISPRO 300 UNITS/3 ML VIAL SQ SCH (21:00)
[2017-12-01] MEDS ORDERED: clonazePAM 1 MG TABLET PO SCH (21:00)
--- NOTE | 2017-12-01 22:44 | Anesthesia Evaluation Post Op ---
Date of Encounter: 12/01/17 Time of Encounter: 21:50 - Vital Signs Vital Signs: Last Vital Signs Temp 98.9 F 12/01/17 21:43 Pulse 68 12/01/17 21:43 Resp 20 12/01/17 21:43 BP 126/54 12/01/17 21:43 Pulse Ox 94 12/01/17 21:43 - Lungs Lungs: Clear Ascult./Percussion - Airway Airway: Non-obstructed - Cardiovascular Regular Rate - Mental Status Mental Status: Alert & Oriented, Answers Appropriately - Pain Pain Scale: 2 - Nausea Vomiting Nausea Vomiting: Not Present - Hydration Hydration: Ice chips, Miles catheter - Discharge PostOp Status: Transfer Patient to floor
[2017-12-02] MEDS: 0.9 % Sodium Chloride 1,000 ML IVC SCH (02:31)
[2017-12-02 04:55] LABS: Basophils % 0.4 %; Hematocrit 25.4 % (37.5-50.1); Hemoglobin 8.2 g/dL (12.9-16.9); Immature Granulocytes % 0.6 % (0-4); Lymphocytes # 0.7 K/mcL (0.6-4.6); Lymphocytes % 12.5 %; Mean Corpuscular HGB Conc 32.3 g/dL (31.6-35.5); Mean Corpuscular Hemoglobin 28.1 pg (28.0-33.3); Mean Platelet Volume 9.2 fL (9.4-12.4); Monocytes # 0.3 K/mcL (0.0-1.3); Monocytes % 4.8 %; Neutrophils # 4.4 K/mcL (1.6-8.9); Platelet Count 164 K/mcL (140-400); Red Blood Count 2.92 M/mcL (4.19-5.50); Red Cell Distribution Width 14.4 % (11.5-14.5); Segmented Neutrophils % 81.7 %
[2017-12-02 05:18] LABS: BUN/Creatinine Ratio 13 (6-26); Blood Urea Nitrogen 12 mg/dL (8-23); Calcium 8.7 mg/dL (8.6-10.3); Carbon Dioxide 24 mEq/L (23-29); Chloride 105 mEq/L (98-107); Glucose 215 mg/dL (70-105); Osmolality,Calculated 290 (280-300); Potassium 4.4 mEq/L (3.5-5.1); Sodium 137 mEq/L (136-145); eGFR For African Americans > 60 (> 60); eGFR For Non-African Americans > 60 (> 60)
--- NOTE | 2017-12-02 05:20 | Event Note ---
Date of Encounter: 12/02/17 Time of Encounter: 05:18 Plan to remove Miles catheter prior to discharge. verify that he can urinate prior to discharge. Should be okay to discharge per urology standpoint on 12/02. No antibiotics necessary Patient needs to hold any anticoagulation including aspirin for at least 1 week Avoid heavy lifting and heavy activity Follow-up with urology within 2 weeks. Light blood in the urine, urgency, frequency, burning on urination is normal. Okay to use AZO when necessary.
[2017-12-02] MEDS ORDERED: Acetaminophen 325 MG TABLET PO PRN (06:56)
[2017-12-02] MEDS ORDERED: *HR* OxyCODONE Immed Rel 5 MG TABLET PO PRN (06:56)
[2017-12-02] MEDS ORDERED: 0.9 % Sodium Chloride 1,000 ML IVC SCH (06:56)
[2017-12-02] MEDS ORDERED: *HR* HYDROcodone/Acet 5/325 mg TABLET PO PRN (06:56)
[2017-12-02] MEDS ORDERED: Naloxone 0.4 MG/ML INJ IVP PRN (06:56)
[2017-12-02] MEDS ORDERED: D5% in Water 1,000 ML IVC PRN (06:56)
[2017-12-02] MEDS ORDERED: *HR* Dextrose 50 % in Water (Syg) 50 ML SYRINGE IVP PRN (06:56)
[2017-12-02] MEDS ORDERED: Ondansetron 4 MG/2 ML VIAL IVP PRN (06:56)
[2017-12-02] MEDS ORDERED: Dextrose Gel 15 GM/37.5 ML TUBE PO PRN ×2 (06:56)
[2017-12-02] MEDS ORDERED: Insulin LISPRO 300 UNITS/3 ML VIAL SQ SCH ×2 (07:30→21:00)
[2017-12-02 07:44] VITALS: BP 111/64
[2017-12-02] MEDS ORDERED: Furosemide 40 MG TABLET PO SCH (08:00)
--- NOTE | 2017-12-02 08:33 | Discharge Summary ---
Orders not resulted at time of discharge: Pending orders 12/01/17 21:15 Surgical Pathology [PTH] Routine Date of Encounter: 12/02/17 Time of Encounter: 08:34 - Discharge Diagnosis (1) Mass of urinary bladder Priority: Primary Status: Acute (2) Hematuria Priority: Secondary Status: Acute Qualifiers: Hematuria type: gross Qualified Code(s): R31.0 - Gross hematuria (3) Urinary retention Priority: Secondary Status: Acute - Hospital Course Hospital course: Mr. Llamas is a 67 year old male Time spent discussing smoking cessation with patient: 3 to 10 minutes - Time Spent with Patient Total time spent providing and/or coordinating discharge services: Less than 30 minutes Procedures and tests throughout hospitalization: TURBT Labs on day of discharge: Labs from last 24 hours 12/02/17 12/02/17 12/02/17 04:41 04:41 04:41 WBC 5.4 RBC 2.92 L Hgb 8.2 L D Hct 25.4 L MCV 87.0 MCH 28.1 MCHC 32.3 RDW 14.4 Plt Count 164 MPV 9.2 L Immature Gran % 0.6 Seg Neutrophils % 81.7 Lymphocytes % 12.5 Monocytes % 4.8 Eosinophils % 0.0 Basophils % 0.4 Neutrophils # 4.4 Lymphocytes # 0.7 Monocytes # 0.3 Eosinophils # 0.0 Basophils # 0.0 Sodium 137 Potassium 4.4 Chloride 105 Carbon Dioxide 24 BUN 12 Creatinine 0.89 Est GFR ( Amer) > 60 Est GFR (Non-Af Amer) > 60 BUN/Creatinine Ratio 13 Glucose 215 H POC Glucose Calculated Osmolality 290 Calcium 8.7 Blood Type AB NEGATIVE Antibody Screen POSITIVE Antibody Identification Inconclusive 12/01/17 12/01/17 16:03 12:07 WBC RBC Hgb Hct MCV MCH MCHC RDW Plt Count MPV Immature Gran % Seg Neutrophils % Lymphocytes % Monocytes % Eosinophils % Basophils % Neutrophils # Lymphocytes # Monocytes # Eosinophils # Basophils # Sodium Potassium Chloride Carbon Dioxide BUN Creatinine Est GFR ( Amer) Est GFR (Non-Af Amer) BUN/Creatinine Ratio Glucose POC Glucose 178 H 136 H Calculated Osmolality Calcium Blood Type Antibody Screen Antibody Identification - Discharge Medications Prescriptions: HYDROcodone/Acet 5/325 mg [[place] 5-325 mg] 1 tab PO Q6H PRN 3 Days #12 tab PRN Reason: Pain Home Medications: Citalopram Hydrobromide [Celexa] 40 mg PO DAILY 08/22/15 [History] Cyanocobalamin (B-12) [Vitamin B12] 1,000 mcg PO DAILY 08/22/15 [History] Furosemide [Lasix] 40 mg PO BID 08/22/15 [History] [place]-3/Dha/Epa/Fish Oil [[place] 3 500 Softgel] 1 cap PO DAILY 08/22/15 [History] clonazePAM [Klonopin] 1 mg PO BID 08/22/15 [History] Atorvastatin [Lipitor] 80 mg PO HS #30 tablet 12/15/16 [Rx] Aspirin Enteric Coated [Aspirin EC] 81 mg PO DAILY 12/01/17 [History] Ciprofloxacin HCl [Cipro] 500 mg PO BID 12/01/17 [History] GlipiZIDE [Glipizide ER] 10 mg PO DAILY 12/01/17 [History] Metformin HCl 1,000 mg PO BID 12/01/17 [History] Multivitamin [One Daily Essential] 1 tab PO DAILY 12/01/17 [History] HYDROcodone/Acet 5/325 mg [[place] 5-325 mg] 1 tab PO Q6H PRN 3 Days #12 tab 12/02 [Rx] Allergies/Adverse Reactions: 3 Allergy/AdvReac Type Severity Reaction Status Date / Time No Known Allergies Allergy Verified 12/01/17 10:20 Date of admission: 12/01/17 11:05 Primary care physician: Sara Mcneil CNP Consults: 12/01/17 13:00 Consult to Urology [CONS] Routine Consulting Provider: [facility] [place] Reason for Consult: Hematuria with clots, bladder mass Call Completed: Yes Discharging clinician: Gracie Prince Anticipated date of discharge: 12/02/17 Exam Initial Vital Signs Temp Pulse Resp BP Pulse Ox 97.7 F 78 16 129/70 95 12/01/17 07:40 12/01/17 07:40 12/01/17 07:40 12/01/17 07:40 12/01/17 07:40 - General physical appearance Present: well developed, no distress, no pain - Eyes Present: PERRL, normal ocular movement - ENT Present: normal nares. Absent: nasal discharge - Neck Present: no masses, trachea midline - Respiratory Present: normal respiratory effort - Cardiovascular Cardiovascular exam IM: RRR - Abdomen Abdomen: Present: soft, non tender. Absent: distended, suprapubic tenderness - Genitourinary other (peguero catheter indwelling draining clear urine 400cc in bedside bag) - Integumentary Present: no rash, no abnormal pigmentation - Neurologic Present: normal coordination - Musculoskeletal Present: other (no pedal edema ) - Patient Status Disposition: Home, Self-Care Functional capacity at discharge: independent ambulation Overall status at discharge: patient is progressing back to baseline - Discharge Instructions Follow Up With: Sara Mcneil CNP [Primary Care Provider] - Lorne Marsh MD [Partnered Physician] - Additional Instructions: Call if fever greater than 101 degrees. May experience some blood in the urine and irritating voiding symptoms such as frequency, hesitancy, burning. May use AZO over the counter if needed. Hold Aspirin for 1 week postoperatively. Do not engage in any heavy lifting or heavy activity until cleared at postoperative appointment. Follow-up in office within 2-4 weeks. - Diet and Activity Activity: increase activity as tolerated Diet: advance to your usual diet - VTE Documentation of Mechanical Device: Intermittent pneumatic compression device
[2017-12-02] MEDS ORDERED: Multivit/Ca/Min/Fe/FA 1 TAB TABLET PO SCH ×2 (09:00)
[2017-12-02] MEDS ORDERED: NON-FORMULARY MEDICATION 1 EACH EACH (Omega-3/Dha/Epa/Fish Oil [Omega 3 500 Softgel] 1 CAP PO SCH (09:00)
[2017-12-02] MEDS ORDERED: Cyanocobalamin (B-12) 1,000 MCG TABLET PO SCH ×2 (09:00)
[2017-12-02] MEDS ORDERED: clonazePAM 1 MG TABLET PO SCH (09:00)
== END 2017-12-02 10:18 | disposition home or self-care (01) ==
LOC: EMEROO 07:39 → 3BNU 07:39
PROVIDERS: ADMIT Internal Medicine; ATTEND Internal Medicine